=== PATIENT | female | born 1975 | race African-American/Black ===

== ENCOUNTER 2018-08-29 08:37 | Inpatient (IN) | payer OTHER ==
[2018-08-29 10:11] VITALS: BMI 36.6
--- NOTE | 2018-08-29 11:22 | HP ---
CIWA Score Nausea/Vomitin Muscle Tremors: 3 Anxiety: 2 Agitation: 3 Paroxysmal Sweats: 1-Minimal Palms Moist Orientation: 0-Oriented Tacttile Disturbances: 1-Very Mild Itch/Numbness Auditory Disturbances: 1-Very Mild Visual Disturbances: 0-None Headache: 2-Mild CIWA-Ar Total Score: 15 - Admission Criteria OASAS Guidelines: Admission for Medically Managed Detox: Requires at least one of the followin. CIWA greater than 12 2. Seizures within the past 24 hours 3. Delirium tremens within the past 24 hours 4. Hallucinations within the past 24 hours 5. Acute intervention needed for co occurring medical disorder 6. Acute intervention needed for co occurring psychiatric disorder 7. Severe withdrawal that cannot be handled at a lower level of care (continued vomiting, continued diarrhea, abnormal vital signs) requiring intravenous medication and/or fluids 8. Admission ROS BHS - HPI Chief Complaint: i need help to top drinking alcohol and cocaine Allergies/Adverse Reactions: Allergies Allergy/AdvReac Type Severity Reaction Status Date / Time No Known Allergies Allergy Verified 08/29/18 09:59 History of Present Illness: this 42 years old female with alcohol and cocaine dependence seeking detox, withdrawal symptom, seen in [facility] last night never been in detox before seizure alcohol related last 06/22 nicotine dependence 1 pack requesting nicotine gum no significant period of sobriety plan to go to rehab after detox Exam Limitations: No Limitations - Ebola screening Have you traveled outside of the country in the last 21 days: No (N) Have you had contact with anyone from an Ebola affected area: No Do you have a fever: No - Review of Systems Constitutional: Loss of Appetite, Malaise, Night Sweats, Changes in sleep EENT: reports: Nose Congestion Respiratory: reports: No Symptoms reported Cardiac: reports: No Symptoms Reported GI: reports: Diarrhea, Nausea, Poor Appetite : reports: No Symptoms Reported Musculoskeletal: reports: No Symptoms Reported Integumentary: reports: Dryness Neuro: reports: Headache, Seizure Endocrine: reports: No Symptoms Reported Hematology: reports: No Symptoms Reported Psychiatric: reports: No Sypmtoms Reported, Judgement Intact, Mood/Affect Appropiate, Orientated x3 Other Systems: Reviewed and Negative Patient History - Patient Medical History Hx Anemia: No Hx Asthma: No Hx Chronic Obstructive Pulmonary Disease (COPD): No Hx Cancer: No Hx Cardiac Disorders: No Hx Congestive Heart Failure: No Hx Hypertension: No Hx Hypercholesterolemia: No Hx Pacemaker: No HX Cerebrovascular Accident: No Hx Seizures: Yes (last 06/22) Hx Dementia: No Hx Diabetes: No Hx Gastrointestinal Disorders: No Hx Liver Disease: No Hx Genitourinary Disorders: No Hx Sexually Transmitted Disorders: No Hx Renal Disease (ESRD): No Hx Thyroid Disease: No Hx Human Immunodeficiency Virus (HIV): No (last 06/22 negative) Hx Hepatitis C: No Hx Depression: Yes (no medication) Hx Suicide Attempt: No Hx Bipolar Disorder: No Hx Schizophrenia: No Other Medical History: no suicidal,no homicidal - Patient Surgical History Past Surgical History: Yes Hx Neurologic Surgery: No Hx Cataract Extraction: No Hx Cardiac Surgery: No Hx Lung Surgery: No Hx Breast Surgery: No Hx Breast Biopsy: No Hx Abdominal Surgery: No Hx Appendectomy: No Hx Cholecystectomy: Yes ( 1997) Hx Genitourinary Surgery: No Hx Section: Yes (13YRS AGO) Hx Orthopedic Surgery: No Hx Hysterectomy: No Anesthesia Reaction: No - PPD History Previous Implant?: Yes Documented Results: Negative w/o proof Implanted On Prior R Admission?: No PPD to be Administered?: Yes - Reproductive History Patient is a Female of Child Bearing Age (11 -55 yrs old): Yes Last Menstrual Period: 08/20/18 Patient : No - Smoking Cessation Smoking history: Current every day smoker Have you smoked in the past 12 months: Yes Aproximately how many cigarettes per day: 20 Hx Chewing Tobacco Use: No Initiated information on smoking cessation: Yes 'Breaking Loose' booklet given: 08/29/18 - Substance & Tx. History Hx Alcohol Use: Yes Hx Substance Use: Yes Substance Use Type: Alcohol, Cocaine Hx Substance Use Treatment: No - Substances abused Other Other (specify): VICODIN Substance route: Oral Frequency: Daily Amount used: 6MG Age of first use: 14 Date of last use: 08/29/18 Alcohol Substance route: Oral Frequency: Daily Amount used: 12 CANS OF BEER Age of first use: 13 Date of last use: 08/28/18 Cocaine Substance route: Smoking Frequency: Daily Amount used: $100 Age of first use: 13 Date of last use: 08/28/18 Family Disease History - Family Disease History Family History: Denies Admission Physical Exam BHS - Vital Signs Vital Signs: Vital Signs - 24 hr 08/29/18 08/29/18 10:03 10:20 Temperature 97.2 F L 97.2 F L Pulse Rate 91 H 91 H Respiratory 18 18 Rate Blood Pressure 135/91 135/91 - Physical General Appearance: Yes: Moderate Distress, Tremorous, Irritable, Sweating, Anxious HEENTM: Yes: Normal ENT Inspection, LIZ, Pharynx Normal Respiratory: Yes: Lungs Clear, Normal Breath Sounds, No Respiratory Distress Neck: Yes: Within Normal Limits, Supple, Trachea in good position Breast: Yes: Breast Exam Deferred Cardiology: Yes: Within Normal Limits, Regular Rhythm, Regular Rate, S1, S2 Abdominal: Yes: Within Normal Limits, Normal Bowel Sounds, Non Tender, Flat, Soft Genitourinary: Yes: Within Normal Limits Back: Yes: Muscle Spasm Musculoskeletal: Yes: Within Normal Limits, Back pain, Muscle Pain Extremities: Yes: Tremors 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, Fully Oriented, Alert, Motor Strength 5/5 Integumentary: Yes: Dry Lymphatic: Yes: Within Normal Limits - Diagnostic (1) Alcohol dependence with uncomplicated withdrawal Current Visit: Yes Status: Acute (2) Alcohol related seizure Current Visit: Yes Status: Acute (3) Dehydration Current Visit: Yes Status: Acute (4) Nicotine dependence Current Visit: Yes Status: Acute Cleared for Admission [facility] - Detox or Rehab [facility] Level of Care: Medically Managed Detox Regimen/Protocol: Librium Breathalyzer - Breathalyzer Breathalyzer: 0 POC Urine test - Test device test lot number: [id number] Expiration date: 02/01/20 - Control test control: Yes - Result Urine Test Results: Negative - NO line present Urine Drug Screen - Test Device Lot number: [id number] Expiration date: 04/02/20 - Control Is test valid?: Yes - Results Drug screen NEGATIVE: No Urine drug screen results: OLE-Cocaine Inpatient Rehab Admission - Rehab Decision to Admit Inpatient rehab admission?: No
[2018-08-29] MEDS ORDERED: MAGNESIUM HYDROX 2400MG/30ML ORAL SUSPENSION 30 ML CUP PO PRN (11:32)
[2018-08-29] MEDS ORDERED: NICOTINE POLACRILEX 2 MG GUM BUC PRN (11:32)
[2018-08-29] MEDS ORDERED: BISMUTH SUBSALICYLATE 262 MG/15 ML BTL PO PRN (11:32)
[2018-08-29] MEDS ORDERED: ACETAMINOPHEN 325 MG TABLET (FP) PO PRN ×2 (11:32)
[2018-08-29] MEDS ORDERED: METHOCARBAMOL 500 MG TABLET PO PRN (11:32)
[2018-08-29] MEDS ORDERED: MENTHOL/PHENOL 1 EACH UD MM PRN (11:32)
[2018-08-29] MEDS ORDERED: chlordiazePOXIDE HCL 10 MG CAPSULE PO PRN (11:32)
[2018-08-29] MEDS ORDERED: hydrOXYzine PAMOATE 25 MG CAPSULE (FP) PO PRN (11:32)
[2018-08-29] MEDS ORDERED: MAG HYDROX/AL HYDROX/SIMETH 30 ML UNIT-DOSE CUP PO PRN (11:32)
[2018-08-29] MEDS ORDERED: MAGNESIUM CITRATE 300 ML BOTTLE PO PRN (11:32)
[2018-08-29] MEDS ORDERED: IBUPROFEN 400 MG TABLET (FP) PO PRN (11:32)
[2018-08-29] MEDS: chlordiazePOXIDE HCL 25 MG CAPSULE PO SCH ×2 (15:21→23:31)
[2018-08-29 17:14] LABS: EPI CELLS 12.4 /HPF (0-5/HPF); PH,URINE 5.5 (5.0-8.0); URINE APPEARANCE CLOUDY; URINE BACTERIA 472.1 /hpf (NEGATIVE); URINE BILIRUBIN NEGATIVE (NEGATIVE); URINE CASTS 29 /lpf (0-8); URINE COLOR YELLOW; URINE GLUCOSE (UA) 3+ (NEGATIVE); URINE KETONE NEGATIVE (NEGATIVE); URINE LEUK ESTERASE 2+ (NEGATIVE); URINE NITRITE NEGATIVE (NEGATIVE); URINE PROTEIN NEGATIVE (NEGATIVE); URINE UROBILINOGEN 0.2 mg/dL (0.2-1.0); URINE WBC 63 /hpf (0-5)
[2018-08-29 18:09] LABS: URINE RBC 13.1 /hpf (0-4)
[2018-08-29 18:10] LABS: YEAST FEW (NEGATIVE)
[2018-08-29] MEDS: THIAMINE HCL 100 MG TABLET (FP) PO SCH (23:31)
[2018-08-30] MEDS: chlordiazePOXIDE HCL 25 MG CAPSULE PO SCH (06:54)
[2018-08-30 10:06] LABS: HEMATOCRIT 37.4 % (32.4-45.2); HEMOGLOBIN 12.5 GM/dL (10.7-15.3); MCHC 33.4 g/dl (32.0-36.0); MEAN CELL VOLUME 86.6 fl (80-96); PLATELET COUNT 361 K/MM3 (134-434); RBC 4.32 M/mm3 (3.60-5.2); WHITE BLOOD COUNT 12.6 K/mm3 (4.0-10.0)
[2018-08-30 10:16] LABS: ALBUMIN 2.9 g/dl (3.4-5.0); ALK PHOS 89 U/L (45-117); ANION GAP 5 MMOL/L (8-16); BILIRUBIN,TOTAL 0.2 mg/dL (0.2-1); BLOOD UREA NITROGEN 8 mg/dL (7-18); CALCIUM 8.6 mg/dL (8.5-10.1); CHLORIDE 102 mmol/L (98-107); CO2 30 mmol/L (21-32); CREATININE 0.6 mg/dL (0.55-1.3); GLUCOSE,RANDOM 207 mg/dL (74-106); POTASSIUM 4.3 mmol/L (3.5-5.1); SGOT/AST 8 U/L (15-37); SGPT/ALT 14 U/L (13-61); SODIUM 136 mmol/L (136-145)
--- NOTE | 2018-08-30 11:02 | EKG ---
Test Reason : Blood Pressure : / mmHG Vent. Rate : 095 BPM Atrial Rate : 095 BPM P-R Int : 176 ms QRS Dur : 088 ms QT Int : 342 ms P-R-T Axes : 072 041 059 degrees QTc Int : 429 ms NORMAL SINUS RHYTHM NORMAL ECG NO PREVIOUS ECGS AVAILABLE Confirmed by FRANCISCO NANCE MD ([id number]) on 08/30/2018 11:01:44 AM Referred By: Confirmed By:FRANCISCO NANCE MD
[2018-08-30 11:09] LABS: SICKLE CELL SCREEN NEGATIVE (NEGATIVE)
[2018-08-30] MEDS ORDERED: FLU VACCINE QUAD 60 MCG/0.5 ML (MDV 18-19) IM ONE (12:00)
[2018-08-30] MEDS: PRENATAL VITAMINS W/ FOLIC ACID TABLET (FP) PO SCH (13:08)
--- NOTE | 2018-08-30 14:57 | PN ---
[facility] CIWA - CIWA Score Nausea/Vomitin-No Nausea/No Vomiting Muscle Tremors: 2 Anxiety: 1-Mildly Anxious Agitation: 0-Normal Activity Paroxysmal Sweats: 3 Orientation: 2-Disoriented Date<2 days Tacttile Disturbances: 0-None Auditory Disturbances: 2-Mild Harshness/Frighten Visual Disturbances: 3-Moderate Sensitivity Headache: 0-None Present CIWA-Ar Total Score: 13 BHS Progress Note (SOAP) Subjective: Sweating, Stomach Cramping, Nausea, Body Aches, Interrupted Sleep. Objective: PATIENT A & O X 2 (UNCERTAIN ABOUT CURRENT DAY / DATE). IN NO ACUTE DISTRESS. PATIENT IS AFEBRILE. 08/30/18 14:54 Vital Signs Temperature 98.2 F 08/30/18 13:53 Pulse Rate 92 H 08/30/18 13:53 Respiratory Rate 18 08/30/18 13:53 Blood Pressure 121/94 08/30/18 13:53 O2 Sat by Pulse Oximetry (%) Laboratory Tests 08/29/18 08/30/18 08/30/18 16:02 07:00 07:00 WBC 12.6 H RBC 4.32 Hgb 12.5 Hct 37.4 MCV 86.6 MCH 29.0 MCHC 33.4 RDW 16.0 H Plt Count 361 MPV 7.0 L Sickle Cell Screen Negative Sodium 136 Potassium 4.3 Chloride 102 Carbon Dioxide 30 Anion Gap 5 L BUN 8 Creatinine 0.6 Creat Clearance w eGFR 108.60 Random Glucose 207 H Calcium 8.6 Total Bilirubin 0.2 AST 8 L ALT 14 Alkaline Phosphatase 89 Total Protein 7.0 Albumin 2.9 L Urine Color Yellow Urine Appearance Cloudy Urine pH 5.5 Ur Specific [place] 1.033 Urine Protein Negative Urine Glucose (UA) 3+ H Urine Ketones Negative Urine Blood Negative Urine Nitrite Negative Urine Bilirubin Negative Urine Urobilinogen 0.2 Ur Leukocyte Esterase 2+ H Urine WBC (Auto) 63 Urine RBC (Auto) 13.1 Urine Casts (Auto) 29 U Epithel Cells (Auto) 12.4 Urine Bacteria (Auto) 472.1 Urine Yeast (Auto) Few RPR Titer 08/30/18 07:00 WBC RBC Hgb Hct MCV MCH MCHC RDW Plt Count MPV Sickle Cell Screen Sodium Potassium Chloride Carbon Dioxide Anion Gap BUN Creatinine Creat Clearance w eGFR Random Glucose Calcium Total Bilirubin AST ALT Alkaline Phosphatase Total Protein Albumin Urine Color Urine Appearance Urine pH Ur Specific [place] Urine Protein Urine Glucose (UA) Urine Ketones Urine Blood Urine Nitrite Urine Bilirubin Urine Urobilinogen Ur Leukocyte Esterase Urine WBC (Auto) Urine RBC (Auto) Urine Casts (Auto) U Epithel Cells (Auto) Urine Bacteria (Auto) Urine Yeast (Auto) RPR Titer Nonreactive LABS NOTED. WHEN ASKED, PATIENT REPORTS THAT SHE HAS BEEN EXPERIENCING A "BURNING" SENSATION WHEN URINATING FOR LAST FEW WEEKS NOW. 08/30/18 15:00 Assessment: 08/30/18 14:54 WITHDRAWAL SYMPTOMS. URINARY TRACT INFECTION. 08/30/18 16:29 Plan: CONTINUE DETOX. INCREASE DAILY PO FLUID INTAKE. REPEAT CBC TOMORROW AM FOR ELEVATED ADMISSION LEVEL. FASTING GLUCOSE LEVEL ORDERED FOR TOMORROW AM FOR ELEVATED ADMISSION RANDOM GLUCOSE LEVEL. REPEAT UA FOR ADMISSION ABNORMALITIES. START BACTRIM DS PO BID FOR LIKELY URINARY TRACT INFECTION.
[2018-08-30] MEDS: chlordiazePOXIDE 5 MG CAPSULE PO SCH ×2 (15:01→22:41)
[2018-08-30] MEDS ORDERED: SULFAMETHOXAZOLE/TRIMETHOPRIM 800MG/160MG D.S. TABLET PO ONE (17:00)
[2018-08-30] MEDS: SULFAMETHOXAZOLE/TRIMETHOPRIM 800MG/160MG D.S. TABLET PO SCH (22:41)
[2018-08-30] MEDS: THIAMINE HCL 100 MG TABLET (FP) PO SCH (22:41)
[2018-08-30] MEDS: MELATONIN 5 MG TABLETS PO PRN (22:43)
[2018-08-31] MEDS: chlordiazePOXIDE 5 MG CAPSULE PO SCH (07:18)
[2018-08-31 10:00] LABS: BASO % 0.4 % (0-2.0); EOS % 1.3 % (0-4.5); HEMATOCRIT 39.4 % (32.4-45.2); HEMOGLOBIN 12.9 GM/dL (10.7-15.3); LYMPH % 11.7 % (8-40); MCH 28.3 pg (25.7-33.7); MCHC 32.8 g/dl (32.0-36.0); MEAN CELL VOLUME 86.1 fl (80-96); MEAN PLT VOLUME 6.7 fl (7.5-11.1); MONO % 6.6 % (3.8-10.2); PLATELET COUNT 400 K/MM3 (134-434); RBC 4.57 M/mm3 (3.60-5.2); RDW 15.6 % (11.6-15.6); WHITE BLOOD COUNT 13.2 K/mm3 (4.0-10.0)
[2018-08-31] MEDS: PRENATAL VITAMINS W/ FOLIC ACID TABLET (FP) PO SCH (10:29)
[2018-08-31] MEDS: SULFAMETHOXAZOLE/TRIMETHOPRIM 800MG/160MG D.S. TABLET PO SCH ×2 (10:30→22:39)
--- NOTE | 2018-08-31 12:16 | PN ---
[facility] CIWA - CIWA Score Nausea/Vomitin-No Nausea/No Vomiting Muscle Tremors: 3 Anxiety: 2 Agitation: 2 Paroxysmal Sweats: 2 Orientation: 0-Oriented Tacttile Disturbances: 0-None Auditory Disturbances: 0-None Visual Disturbances: 0-None Headache: 0-None Present CIWA-Ar Total Score: 9 S Progress Note (SOAP) Subjective: tired sweats interrupted sleep Objective: 08/31/18 12:16 Vital Signs Temperature 98.4 F 08/31/18 10:31 Pulse Rate 52 L 08/31/18 10:31 Respiratory Rate 18 08/31/18 10:31 Blood Pressure 103/53 L 08/31/18 10:31 O2 Sat by Pulse Oximetry (%) Laboratory Tests 08/29/18 08/30/18 08/30/18 16:02 07:00 07:00 WBC 12.6 H RBC 4.32 Hgb 12.5 Hct 37.4 MCV 86.6 MCH 29.0 MCHC 33.4 RDW 16.0 H Plt Count 361 MPV 7.0 L Absolute Neuts (auto) Neutrophils % Lymphocytes % Monocytes % Eosinophils % Basophils % Nucleated RBC % Sickle Cell Screen Negative Sodium 136 Potassium 4.3 Chloride 102 Carbon Dioxide 30 Anion Gap 5 L BUN 8 Creatinine 0.6 Creat Clearance w eGFR 108.60 Random Glucose 207 H Fasting Glucose Calcium 8.6 Total Bilirubin 0.2 AST 8 L ALT 14 Alkaline Phosphatase 89 Total Protein 7.0 Albumin 2.9 L Urine Color Yellow Urine Appearance Cloudy Urine pH 5.5 Ur Specific [place] 1.033 Urine Protein Negative Urine Glucose (UA) 3+ H Urine Ketones Negative Urine Blood Negative Urine Nitrite Negative Urine Bilirubin Negative Urine Urobilinogen 0.2 Ur Leukocyte Esterase 2+ H Urine WBC (Auto) 63 Urine RBC (Auto) 13.1 Urine Casts (Auto) 29 U Epithel Cells (Auto) 12.4 Urine Bacteria (Auto) 472.1 Urine Yeast (Auto) Few RPR Titer 08/30/18 08/31/18 08/31/18 07:00 07:00 07:00 WBC 13.2 H RBC 4.57 Hgb 12.9 Hct 39.4 MCV 86.1 MCH 28.3 MCHC 32.8 RDW 15.6 Plt Count 400 MPV 6.7 L Absolute Neuts (auto) 10.5 H Neutrophils % 80.0 Lymphocytes % 11.7 Monocytes % 6.6 Eosinophils % 1.3 Basophils % 0.4 Nucleated RBC % 0 Sickle Cell Screen Sodium Potassium Chloride Carbon Dioxide Anion Gap BUN Creatinine Creat Clearance w eGFR Random Glucose Fasting Glucose 245 H Calcium Total Bilirubin AST ALT Alkaline Phosphatase Total Protein Albumin Urine Color Urine Appearance Urine pH Ur Specific [place] Urine Protein Urine Glucose (UA) Urine Ketones Urine Blood Urine Nitrite Urine Bilirubin Urine Urobilinogen Ur Leukocyte Esterase Urine WBC (Auto) Urine RBC (Auto) Urine Casts (Auto) U Epithel Cells (Auto) Urine Bacteria (Auto) Urine Yeast (Auto) RPR Titer Nonreactive labs noted aaox3 lying in bed no acute distress pt fasting glucose is 245. pt failed to states during her initial admission that she is diagnosed diabetic and takes metformin 500mg twice a day. Assessment: 08/31/18 12:16 withdrawal sx Plan: continue detox increase fluids bgm bid metformin 500mg bid
[2018-08-31] MEDS ORDERED: chlordiazePOXIDE HCL 10 MG CAPSULE PO SCH (13:00)
[2018-08-31] MEDS ORDERED: chlordiazePOXIDE HCL 10 MG CAPSULE PO PRN (13:00)
[2018-08-31] MEDS: metFORMIN HCL 500 MG TABLET (FP) PO SCH (17:07)
[2018-08-31] MEDS: MELATONIN 5 MG TABLETS PO PRN (22:39)
[2018-08-31] MEDS: THIAMINE HCL 100 MG TABLET (FP) PO SCH (22:39)
[2018-09-01] MEDS ORDERED: chlordiazePOXIDE HCL 10 MG CAPSULE PO ONE (06:00)
[2018-09-01] MEDS: metFORMIN HCL 500 MG TABLET (FP) PO SCH (06:37)
[2018-09-01 07:33] VITALS: BP 120/75; PULSE 88; TEMP 97.9
--- NOTE | 2018-09-01 09:45 | DS ---
[facility] Detox Discharge Summary Admission Date: 08/29/18 Discharge Date: 09/01/18 - History Present History: Alcohol Dependence - Physical Exam Results Vital Signs: Vital Signs Temperature 97.9 F 09/01/18 07:32 Pulse Rate 88 09/01/18 07:32 Respiratory Rate 18 09/01/18 07:32 Blood Pressure 120/75 09/01/18 07:32 O2 Sat by Pulse Oximetry (%) - Treatment Hospital Course: Detox Protocol Followed, Detoxed Safely, Responded well, Discharged Condition Good, Rehab Referral Accepted - Medication Discharge Medications: Ambulatory Orders Sulfamethoxazole/Trimethoprim [Bactrim DS -] 1 each PO BID #14 tablet 08/31/18 metFORMIN HCL [Glucophage -] 500 mg PO BIDAC #90 tablet 08/31/18 - Diagnosis (1) Alcohol dependence with uncomplicated withdrawal Status: Chronic (2) Alcohol related seizure Status: Acute (3) Dehydration Status: Acute (4) Leukocytosis Status: Acute (5) Nicotine dependence Status: Chronic Qualifiers: Nicotine product type: cigarettes Substance use status: uncomplicated Qualified Code(s): F17.210 - Nicotine dependence, cigarettes, uncomplicated - AMA Did Patient Leave Against Medical Advice: No (referred to [facility] rehab)
== END 2018-09-01 08:54 | disposition home or self-care (01) | DRG 774 ==
LOC: YASAS 08:37 → Y6N 11:38
PROVIDERS: ADMIT Surgery; ATTEND Surgery
PROC: HZ2ZZZZ Detoxification Services for Substance Abuse Treatment (ICD-10-PCS; principal; 2018-08-29)
DX: F10.230 Alcohol dependence with withdrawal, uncomplicated (principal); F14.20 Cocaine dependence, uncomplicated; F17.210 Nicotine dependence, cigarettes, uncomplicated; G40.509 Epileptic seizures related to external causes, not intractable, without status epilepticus; N39.0 Urinary tract infection, site not specified; E86.0 Dehydration; D72.829 Elevated white blood cell count, unspecified; E11.9 Type 2 diabetes mellitus without complications; Z79.84 Long term (current) use of oral hypoglycemic drugs
CPT/HCPCS: 36415; 80053; 81003; 82947; 85025; 85027; 85660; 86593; 93005; 93010

== ENCOUNTER 2018-09-23 10:48 | Inpatient (IN) | payer OTHER | END 2018-09-24 17:32 | disposition left against medical advice (07) | LOC: YASAS 10:48 → Y3N 13:53 ==